=== PATIENT | female | born 1940 | race Caucasian/White ===

== ENCOUNTER 2019-04-01 08:45 | Inpatient (IN) | payer MEDICARE, OTHER ==
[2019-03-29 14:16] LABS: BASOPHILS # (AUTO) 0.02 x10^3/uL (0-0.1); BASOPHILS % (AUTO) 0 % (0-1); EOSINOPHILS # (AUTO) 0.04 x10^3/uL (0-0.4); EOSINOPHILS % (AUTO) 1 % (1-7); LYMPHOCYTES # (AUTO) 0.51 x10^3/uL (1-3.4); LYMPHOCYTES % (AUTO) 9 % (22-44); MD NO; MEAN CORPUSCULAR HGB CONC 32.8 g/dL (32.4-35.8); MEAN CORPUSCULAR VOLUME 91.5 fL (80-100); MEAN PLATELET VOLUME 7.2 fL (7.4-10.4); MONOCYTES # (AUTO) 0.55 x10^3/uL (0.2-0.8); MONOCYTES % (AUTO) 10 % (2-9); NEUTROPHILS # (AUTO) 4.53 x10^3/uL (1.8-6.8); NEUTROPHILS % (AUTO) 80 % (42-75); PLATELET COUNT 425 x10^3/uL (130-400); RED BLOOD COUNT 3.83 x10^6/uL (3.82-5.3); RED CELL DISTRIBUTION WIDTH 15.5 % (9.6-15.2)
[2019-03-29 14:24] LABS: INTERNATIONAL NORMALIZED RATIO 0.97 (0.93-1.1); PROTHROMBIN TIME 10.2 Seconds (9.6-11.5)
[2019-03-29 14:26] LABS: ALANINE AMINOTRANSFERASE 20 U/L (12-78); ALBUMIN 3.3 g/dL (3.4-5.0); ANION GAP 6 mmol/L (5-15); CHLORIDE 109 mmol/L (98-107); CREATININE 1.62 mg/dL (0.55-1.02)
[2019-03-29 14:28] LABS: ALKALINE PHOSPHATASE 86 U/L (45-117); BILIRUBIN,TOTAL 0.4 mg/dL (0.2-1.0); TOTAL PROTEIN 7.3 g/dL (6.4-8.2)
[2019-03-29 14:36] LABS: HEMOGLOBIN A1C 6.4 % (4.2-6.3)
[~2019-04-01] VITALS: Ht 157.5 cm; Wt 101.0 kg
[~2019-04-01 08:45] MED LIST: ALBU18HF INH; AMIO100T4 PO; AMLO2.5T5 PO; APIX5TAB PO; CYCL1DRO EACHEYE; DILT120C2 PO; EPINEPHRINE 1 MG/ML, 1ML ONE; FEBU40TA PO; FERR-46 PO; FURO20TA3 PO; GABA100C PO; INSU100C5 SQ-INSULIN; KETOROLAC 60 MG/2 ML ONE; POTA10TA5 PO; RALO60TA PO; ROPIvacaine/PF 0.5%, 30 ML ONE; SIMV20TA3 PO; SODIUM CHLORIDE 0.9% 100 ML ONE; TRANEXAMIC ACID 100 MG/ML, 10ML ONE; VANCOMYCIN 1,000 MG ONE
[2019-04-01] MEDS ORDERED: LACTATED RINGERS 1,000 ML IV SCH (11:10)
[2019-04-01] MEDS ORDERED: ACETAMINOPHEN 500 MG TABLET PO ONE (11:30)
[2019-04-01] MEDS ORDERED: GABAPENTIN 300 MG CAPSULE PO ONE (11:30)
[2019-04-01] MEDS ORDERED: FENTANYL PF 100 MCG/2ML ONE ×2 (11:48→14:10)
[2019-04-01] MEDS ORDERED: MIDAZOLAM 1 MG/ML, 2ML ONE (11:48)
[2019-04-01] MEDS ORDERED: DEXAMETHASONE 4 MG/ML, 1ML ONE (12:02)
[2019-04-01] MEDS ORDERED: PROPOFOL 10 MG/ML, 20ML ONE (12:02)
[2019-04-01] MEDS ORDERED: ROCURONIUM 10MG/ML,5ML ONE (12:02)
[2019-04-01] MEDS ORDERED: LIDOCAINE-MPF 2% ,5ML ONE (12:02)
[2019-04-01] MEDS ORDERED: ONDANSETRON 2MG/ML, 2ML ONE (12:02)
[2019-04-01] MEDS ORDERED: CEFAZOLIN 1,000 MG ONE ×2 (12:02)
[2019-04-01] MEDS ORDERED: ONDANSETRON 4 MG TABLET PO PRN (13:30)
[2019-04-01] MEDS ORDERED: SCOPOLAMINE PATCH, 1.5MG PATCH.TD72 TD ONE (13:30)
[2019-04-01] MEDS ORDERED: ONDANSETRON 2MG/ML, 2ML IV PRN ×2 (13:30→14:30)
[2019-04-01] MEDS ORDERED: DIPHENHYDRAMINE 25 MG CAPSULE PO PRN (13:30)
[2019-04-01] MEDS ORDERED: ACETAMINOPHEN 650 MG/20.3 ML UDC PO PRN (13:30)
[2019-04-01] MEDS ORDERED: ZOLPIDEM 5MG TABLET PO PRN (13:30)
[2019-04-01] MEDS ORDERED: HYDROcodone/APAP 5/325 TABLET PO PRN (13:30)
[2019-04-01] MEDS ORDERED: BISACODYL 10 MG SUPP PR PRN (13:30)
[2019-04-01] MEDS ORDERED: MAGNESIUM HYDROXIDE 8%, 30ML UDC PO PRN (13:30)
[2019-04-01] MEDS ORDERED: SENNA/DOCUSATE TABLET PO PRN (13:30)
[2019-04-01] MEDS ORDERED: NEOSTIGMINE 1 MG/ML, 10ML ONE (13:40)
[2019-04-01] MEDS ORDERED: GLYCOPYRROLATE 0.2MG/1ML, 5ML ONE (13:40)
[2019-04-01] MEDS ORDERED: OXYcodone 5 MG/5 ML ORAL.SOL UDC PO PRN (14:30)
[2019-04-01] MEDS ORDERED: ALBUTEROL/IPRATROPIUM 2.5MG/0.5MG, 3 ML NPPB PRN (14:30)
[2019-04-01] MEDS ORDERED: MEPERIDINE/PF 25MG/0.5ML IVPush PRN (14:30)
[2019-04-01] MEDS ORDERED: hydrALAzine 20 MG/ML, 1ML IV PRN (14:30)
[2019-04-01] MEDS ORDERED: MIDAZOLAM 1 MG/ML, 2ML IV PRN (14:30)
[2019-04-01] MEDS ORDERED: FENTANYL PF 100 MCG/2ML IV PRN (14:30)
[2019-04-01] MEDS ORDERED: PROMETHAZINE 25 MG/ML, 1ML IV PRN (14:30)
[2019-04-01] MEDS ORDERED: METOPROLOL 1 MG/ML, 5ML IV PRN (14:30)
[2019-04-01] MEDS ORDERED: MEPERIDINE/PF 100 MG/ML ONE (14:31)
[2019-04-01] MEDS ORDERED: OXYcodone 5 MG/5 ML ORAL.SOL UDC ONE (15:08)
[2019-04-01] MEDS ORDERED: HYDROmorphone 2 MG/ML, 1ML ONE (15:08)
[2019-04-01] MEDS: HYDROmorphone 2 MG/ML, 1ML IVPush PRN ×4 (15:13→15:40)
[2019-04-01] MEDS ORDERED: METOPROLOL 1 MG/ML, 5ML ONE (16:19)
[2019-04-01] MEDS ORDERED: Albuterol Sulfate (Ventolin Hfa) INH PRN (16:30)
[2019-04-01] MEDS: ASPIRIN 81 MG TABLET EC PO SCH (17:17)
[2019-04-01] MEDS: NS + 20MEQ KCL 1,000 ML IV SCH (17:17)
[2019-04-01] MEDS: INSULIN LISPRO 100 UNITS/ML, PEN SQ-INSULIN SCH ×2 (17:17→20:46)
[2019-04-01 18:55] VITALS: BP 116/60
[2019-04-01] MEDS: DOCUSATE 100 MG CAPSULE PO SCH (19:56)
[2019-04-01] MEDS: GABAPENTIN 100 MG CAPSULE PO SCH (20:05)
[2019-04-01] MEDS: FUROSEMIDE 40 MG TABLET PO SCH (20:05)
[2019-04-01] MEDS: SIMVASTATIN 20 MG TABLET PO SCH (20:06)
[2019-04-01] MEDS ORDERED: CEFAZOLIN 2,000 MG in SODIUM CHLORIDE 0.9% 50 ML IVPB SCH (20:30)
[2019-04-01] MEDS: OXYcodone IR 5MG TABLET PO PRN ×2 (20:39→22:11)
[2019-04-01] MEDS: CEFAZOLIN 2,000 MG in SODIUM CHLORIDE 0.9% 50 ML IVPB SCH (20:39)
[2019-04-02 01:01] VITALS: BP 126/59
[2019-04-02] MEDS: OXYcodone IR 5MG TABLET PO PRN ×5 (03:05→19:50)
[2019-04-02 04:03] VITALS: BP 118/53
[2019-04-02] MEDS: CEFAZOLIN 2,000 MG in SODIUM CHLORIDE 0.9% 50 ML IVPB SCH (04:30)
[2019-04-02] MEDS: NS + 20MEQ KCL 1,000 ML IV SCH ×2 (04:31→12:44)
[2019-04-02] MEDS: ASPIRIN 81 MG TABLET EC PO SCH ×2 (06:07→16:56)
[2019-04-02] MEDS: INSULIN LISPRO 100 UNITS/ML, PEN SQ-INSULIN SCH ×4 (07:00→21:00)
[2019-04-02] MEDS: POTASSIUM CHLORIDE 10 MEQ TABLET.ER PO SCH (08:12)
[2019-04-02] MEDS: FEBUXOSTAT 40 MG TABLET PO SCH (08:12)
[2019-04-02] MEDS: GABAPENTIN 100 MG CAPSULE PO SCH ×2 (08:12→19:49)
[2019-04-02] MEDS: AMIODARONE 200 MG TABLET PO SCH (08:12)
[2019-04-02] MEDS: DILTIAZEM 120 MG CAP.ER.24H PO SCH (08:12)
[2019-04-02] MEDS: AMLODIPINE 2.5 MG TABLET PO SCH (08:12)
[2019-04-02] MEDS: FUROSEMIDE 40 MG TABLET PO SCH ×2 (08:12→19:49)
[2019-04-02 08:14] VITALS: BP 101/50
[2019-04-02] MEDS: DOCUSATE 100 MG CAPSULE PO SCH ×2 (08:15→19:50)
[2019-04-02] MEDS ORDERED: OXYC5CAP2 PO (09:44)
[2019-04-02] MEDS ORDERED: TRAM50TA2 PO (09:47)
[2019-04-02 12:53] VITALS: BP 114/49
[2019-04-02 19:18] VITALS: BP 102/56
[2019-04-02] MEDS: SIMVASTATIN 20 MG TABLET PO SCH (19:49)
[2019-04-03 00:42] VITALS: BP 108/55
[2019-04-03] MEDS: NS + 20MEQ KCL 1,000 ML IV SCH ×2 (01:53→13:27)
[2019-04-03] MEDS: OXYcodone IR 5MG TABLET PO PRN ×2 (01:59→10:49)
[2019-04-03] MEDS: ASPIRIN 81 MG TABLET EC PO SCH (05:43)
[2019-04-03] MEDS: INSULIN LISPRO 100 UNITS/ML, PEN SQ-INSULIN SCH ×3 (06:41→16:00)
[2019-04-03 07:27] VITALS: BP 97/39
[2019-04-03 08:00] VITALS: BP 112/48
[2019-04-03] MEDS: AMIODARONE 200 MG TABLET PO SCH (08:12)
[2019-04-03] MEDS: DOCUSATE 100 MG CAPSULE PO SCH (08:12)
[2019-04-03] MEDS: POTASSIUM CHLORIDE 10 MEQ TABLET.ER PO SCH (08:13)
[2019-04-03] MEDS: FUROSEMIDE 40 MG TABLET PO SCH (08:13)
[2019-04-03] MEDS: FEBUXOSTAT 40 MG TABLET PO SCH (08:13)
[2019-04-03] MEDS: AMLODIPINE 2.5 MG TABLET PO SCH (08:13)
[2019-04-03] MEDS: DILTIAZEM 120 MG CAP.ER.24H PO SCH (08:13)
[2019-04-03] MEDS: GABAPENTIN 100 MG CAPSULE PO SCH (08:13)
[2019-04-03 10:49] VITALS: BP 117/55
[2019-04-03 12:40] VITALS: BP 110/57
[2019-04-03 16:05] VITALS: BP 117/58
== END 2019-04-03 17:09 | disposition home or self-care (01) | DRG 469 ==
LOC: ORIP 10:46 → 4NOR 15:58
PROVIDERS: ADMIT Orthopaedic Surgery; ATTEND Orthopaedic Surgery
PROC: 5A09357 Assistance with Respiratory Ventilation, Less than 24 Consecutive Hours, Continuous Positive Airway Pressure (ICD-10-PCS; 2019-04-01)
PROC: 0SR906A Replacement of Right Hip Joint with Oxidized Zirconium on Polyethylene Synthetic Substitute, Uncemented, Open Approach (ICD-10-PCS; principal; 2019-04-01 13:45)
PROC: 5A09357 Assistance with Respiratory Ventilation, Less than 24 Consecutive Hours, Continuous Positive Airway Pressure (ICD-10-PCS; 2019-04-02)
DX: M16.11 Unilateral primary osteoarthritis, right hip (principal); E43 Unspecified severe protein-calorie malnutrition; M87.88 Other osteonecrosis, other site; Z68.41 Body mass index [BMI] 40.0-44.9, adult; I10 Essential (primary) hypertension; N18.9 Chronic kidney disease, unspecified; E11.9 Type 2 diabetes mellitus without complications; G47.33 Obstructive sleep apnea (adult) (pediatric); G89.29 Other chronic pain; Z88.2 Allergy status to sulfonamides; Z88.8 Allergy status to other drugs, medicaments and biological substances; Z79.899 Other long term (current) drug therapy
CPT/HCPCS: 36415; 72170; 76000; 80053; 82962; 83036; 85014; 85018; 85025; 85610; 85730; 87081; 93005; C1713; G0378; J0171; J0690; J1100; J1170; J1885; J2250; J2405; J2704; J2710; J2795; J3010; J3370; J3480; C1776; J1815; J2175; J7120